=== PATIENT | male | born 1965 | race Caucasian/White ===

== ENCOUNTER 2017-02-18 09:55 | Emergency (ER) | payer BC ==
[2017-02-18] MEDS ORDERED: Sodium Chloride 0.9% 500 ML IV ONE (10:17)
--- NOTE | 2017-02-18 10:29 | EDM.PDOC ---
ED HPI GENERAL MEDICAL PROBLEM - General Chief Complaint: Gastrointestinal Problem Stated Complaint: SENT BY [facility]/GI PROBLEMS Time Seen by Provider: 02/18/17 10:23 Source of Information: Reports: Patient, RN Notes Reviewed - History of Present Illness INITIAL COMMENTS - FREE TEXT/NARRATIVE: 51-year-old male comes in with symptoms of nausea, elevated lipase when checked at clinic yesterday. He states she's been feeling somewhat nauseated for about a week. Order he has continued to eat fairly normally, has been drinking fluids without difficulty. ~Does have his gallbladder. He does not consume alcohol. His lipase is reported to have been in the 1100 range after blood draw at the clinic yesterday. He gone to the clinic yesterday because of the nausea and " for a general physical". When the light pace came back reported quite high in the 1000 range she was referred to come here to the ED for further evaluation He has no upper abdominal pain at this time. No chest pain or difficulty breathing. He has not been vomiting. No prior abdominal surgeries. - Related Data Allergies Allergy/AdvReac Type Severity Reaction Status Date / Time No Known Allergies Allergy Verified 02/18/17 10:19 Home Meds: Home Meds Ranitidine [Zantac] 150 mg PO DAILY 02/18/17 [History] Zolpidem [Ambien] 10 mg PO BEDTIME 02/18/17 [History] ED ROS GENERAL - Review of Systems Review Of Systems: See Below Constitutional: Denies: Fever, Chills, Diaphoresis HEENT: Reports: No Symptoms Respiratory: Denies: Shortness of Breath Cardiovascular: Denies: Chest Pain GI/Abdominal: Reports: Nausea. Denies: Abdominal Pain, Vomiting Musculoskeletal: Reports: No Symptoms Skin: Reports: No Symptoms Neurological: Reports: No Symptoms ED EXAM, GI/ABD - Physical Exam Exam: See Below General Appearance: Alert, No Apparent Distress Throat/Mouth: Normal Inspection, Normal Oropharynx Head: Atraumatic. No: Facial Swelling Neck: Supple, Full Range of Motion Respiratory/Chest: Lungs Clear, Normal Breath Sounds Cardiovascular: Regular Rate, Rhythm GI/Abdominal Exam: Soft, Non-Tender. No: Guarding Back Exam: No: CVA Tenderness (L), CVA Tenderness (R) Extremities: Normal Inspection, Normal Range of Motion Neurological: Alert, Oriented, No Motor/Sensory Deficits Skin Exam: Warm, Dry, Normal Color Course - Vital Signs Last Recorded V/S: Last Vital Signs Temp 97.4 F 02/18/17 10:17 Pulse 60 02/18/17 10:17 Resp 16 02/18/17 10:17 BP 122/82 02/18/17 10:17 Pulse Ox 95 02/18/17 10:17 - Orders/Labs/Meds Orders: Active Orders 24 hr Category Date Time Status Peripheral IV Care [RC] . DIRECTED Care 02/18/17 10:18 Active Peripheral IV Insertion Adult [OM.PC] Stat Oth 02/18/17 10:17 Ordered Labs: Laboratory Tests 02/18/17 02/18/17 02/18/17 Range/Units 11:20 11:20 12:17 WBC 10.38 H (4.23-9.07) K/mm3 RBC 5.63 (4.63-6.08) M/mm3 Hgb 16.2 (13.7-17.5) gm/L Hct 46.5 (40.1-51.0) % MCV 82.6 (79.0-92.2) fl MCH 28.8 (25.7-32.2) pg MCHC 34.8 (32.2-35.5) g/dl RDW Std Deviation 39.8 (35.1-43.9) fL Plt Count 255 (163-337) K/mm3 MPV 11.8 (9.4-12.3) fl Neutrophils % (Manual) 63 H (40-60) % Band Neutrophils % 1 (0-10) % Lymphocytes % (Manual) 26 (20-40) % Atypical Lymphs % 0 % Monocytes % (Manual) 7 (2-10) % Eosinophils % (Manual) 3 (0.8-7.0) % Basophils % (Manual) 0 L (0.2-1.2) Platelet Estimate Adequate RBC Morph Comment Normal Sodium 143 (136-145) mEq/L Potassium 3.7 (3.5-5.1) mEq/L Chloride 107 (98-107) mEq/L Carbon Dioxide 25 (21-32) mEq/L Anion Gap 14.7 (5-15) BUN 21 H (7-18) mg/dL Creatinine 1.1 (0.7-1.3) mg/dL Est Cr Clr Drug Dosing 82.95 mL/min Estimated GFR (MDRD) > 60 (>60) mL/min BUN/Creatinine Ratio 19.1 H (14-18) Glucose 123 H (74-106) mg/dL Calcium 8.8 (8.5-10.1) mg/dL Total Bilirubin 0.8 (0.2-1.0) mg/dL AST 18 (15-37) U/L ALT 38 (16-63) U/L Alkaline Phosphatase 72 (46-116) U/L C-Reactive Protein < 0.2 (<1.0) mg/dL Total Protein 6.9 (6.4-8.2) g/dl Albumin 3.5 (3.4-5.0) g/dl Globulin 3.4 gm/dL Albumin/Globulin Ratio 1.0 (1-2) Amylase 45 (25-115) U/L Lipase 251 (73-393) U/L Meds: Medications Discontinued Medications Generic Name Dose Route Start Last Admin Trade Name Freq PRN Reason Stop Dose Admin Diatrizoate Meglum/Diatrizoate Sod 90 ml 02/18/17 12:12 02/18/17 12:39 Gastrografin 37% PO 02/18/17 12:13 90 ml ONETIME ONE Administration Sodium Chloride 500 mls @ 999 mls/hr 02/18/17 10:17 02/18/17 11:28 Normal Saline IV 02/18/17 10:47 999 mls/hr .BOLUS ONE Administration Iopamidol 125 ml 02/18/17 12:12 02/18/17 12:39 Isovue-300 (61%) IVPUSH 02/18/17 12:13 125 ml ONETIME ONE Administration Sodium Chloride 10 ml 02/18/17 10:18 02/18/17 12:39 Saline Flush FLUSH 10 ml ASDIRECTED PRN Administration Keep Vein Open Sodium Chloride 10 ml 02/18/17 12:12 Saline Flush FLUSH ONETIME PRN IV FLUSH - Re-Assessments/Exams Free Text/Narrative Re-Assessment/Exam: 02/18/17 16:00. Lipase and amylase did come back normal. Because of the highly elevated reading yesterday from the clinic CT of abdomen and pelvis was ordered and done prior to labs coming back. The CT did not show any sign of high-grade otitis or other upper abdominal pathology. See Radiology report for details. Departure - Departure Time of Disposition: 14:04 Disposition: Home, Self-Care 01 Condition: Fair Clinical Impression: Nausea - Discharge Information Referrals: Lincoln iKm PA-C [Primary Care Provider] - Forms: ED Department Discharge Additional Instructions: There is an amylase was 45 today, lipase 251, both normal. CT of your abdomen did not show any sign of pancreatitis. Follow-up clinic as needed if symptoms worsening in any way, return to ED as needed. - My Orders Last 24 Hours: My Active Orders 02/18/17 10:17 Peripheral IV Insertion Adult [OM.PC] Stat 02/18/17 10:18 Peripheral IV Care [RC] . DIRECTED - Assessment/Plan Last 24 Hours: My Active Orders 02/18/17 10:17 Peripheral IV Insertion Adult [OM.PC] Stat 02/18/17 10:18 Peripheral IV Care [RC] . DIRECTED
[2017-02-18] MEDS: Sodium Chloride 0.9% 10 ML Syringe FLUSH PRN ×2 (11:29→12:39)
[2017-02-18] MEDS ORDERED: Iopamidol 612 MG/ML 150 ML Bottle IVPUSH ONE (12:12)
[2017-02-18] MEDS ORDERED: Sodium Chloride 0.9% 10 ML Syringe FLUSH PRN (12:12)
[2017-02-18] MEDS ORDERED: Diatrizoate Meglumine/Diatrizoate Sodium 37% 120 ML Bottle PO ONE (12:12)
--- NOTE | 2017-02-18 14:08 | CT ---
CT abdomen and pelvis Technique: Multiple axial sections were obtained from above the dome of the diaphragm inferiorly through the pubic symphysis. Intravenous and oral contrast was utilized. Delayed images were obtained through the bladder. Comparison: No prior abdominal or pelvic CT imaging. Findings: Small portion of the visualized lung bases are clear. Small hyperenhancing lesion is seen posteriorly within the right lobe of the liver. This finding measures 9 mm. Liver shows diffuse fatty infiltration. No additional abnormality is seen within the liver. Spleen appears within normal limits. Adrenal glands show no nodule. Calcified gallstone is seen within the gallbladder measuring 1.3 cm. Pancreas is within normal limits. Small soft tissue nodule within the splenic hilum is seen compatible with incidental accessory splenic tissue. Kidneys show symmetric contrast enhancement without hydronephrosis or mass. Aorta shows no aneurysmal dilatation. No retroperitoneal adenopathy or mesenteric abnormalities are seen. Appendix is seen which appears normal. No pelvic mass or adenopathy is seen. Mild wall thickening is seen within the sigmoid colon with no surrounding inflammatory change. Difficult to exclude a mild focal colitis. Other portions of the colon are felt to be within normal limits. No free fluid or inflammatory change is seen. Delayed images shows contrast within the distal ureters and within the bladder. Bone window settings were reviewed which appears within normal limits for the patient's age. Impression: 1. Bowel wall thickening within the sigmoid colon. Focal colitis is a possibility. No significant inflammatory change is seen around this area of bowel wall thickening. 2. Small hyperenhancing lesion within the posterior right lobe of the liver which is likely benign. Fatty infiltration is seen within the liver. 3. Large calcified gallstone within the gallbladder. 4. Nothing acute is identified. Diagnostic code #2
== END 2017-02-18 14:13 | disposition home or self-care (01) ==
LOC: JD.ED 09:55
DX: R11.0 Nausea (principal); Z79.899 Other long term (current) drug therapy
CPT/HCPCS: 36415; 74177; 80053; 82150; 83690; 85025; 86140; 96360; 99283; J7040; J7050; Q9963; Q9967; 99284

== ENCOUNTER 2017-11-01 07:09 | Day surgery (SDC) | payer BC ==
[~2017-11-01 07:09] MED LIST: Lactated Ringers 1,000 ML IV SCH; Lidocaine 1% 2 ML ONE; Lidocaine 1%/Sod Bicarbonate in NS 8.4% 1 ML Syringe IDERM PRN; Propofol 200 MG/20 ML SDV ONE; Sodium Chloride 0.9% 10 ML Syringe FLUSH PRN
--- NOTE | 2017-11-01 07:42 | PCM.PREANE ---
Preanesthetic Assessment - Anesthesia/Transfusion/Family Hx Anesthesia History: Prior Anesthesia Without Reaction Family History of Anesthesia Reaction: No Transfusion History: No Prior Transfusion(s) Intubation History: Unknown - Review of Systems General: No Symptoms Pulmonary: Shortness of Breath Cardiovascular: No Symptoms Gastrointestinal: No Symptoms Neurological: No Symptoms Other: Reports: None - Physical Assessment NPO Status Date: 11/01/17 NPO Status Time: 00:00 Pulse: 72 O2 Sat by Pulse Oximetry: 98 Respiratory Rate: 18 Blood Pressure: 122/80 Temperature: 97.7 C ASA Class: 2 Mental Status: Alert & Oriented x3 Airway Class: Mallampati = 1 Dentition: Reports: Normal Dentition Thyro-Mental Finger Breadths: 3 Mouth Opening Finger Breadths: 3 ROM/Head Extension: Limited/Partial (pt had neck surgery as an , ROM limited L/R more so L limitation) Lungs: Clear to Auscultation Cardiovascular: Regular Rate, Regular Rhythm - Lab Values: Laboratory Last Values POC Glucose 112 mg/dL (70-105) H 11/01/17 07:27 - Allergies Allergies/Adverse Reactions: Allergies Allergy/AdvReac Type Severity Reaction Status Date / Time No Known Allergies Allergy Verified 02/18/17 10:19 - Acknowledgements Anesthesia Type Planned: MAC Pt an Appropriate Candidate for the Planned Anesthesia: Yes Alternatives and Risks of Anesthesia Discussed w Pt/Guardian: Yes Pt/Guardian Understands and Agrees with Anesthesia Plan: Yes PreAnesthesia Questionnaire HEENT History: Reports: None Cardiovascular History: Reports: SOB on Exertion (pt states SOB with exertion, has been told by in [place] "tobacco got into lungs when sleeping and scarred lungs") Respiratory History: Reports: Sleep Apnea, SOB Gastrointestinal History: Reports: GERD, Pancreatitis, Other (See Below) Other Gastrointestinal History: Hernia Genitourinary History: Reports: None Musculoskeletal History: Reports: None Neurological History: Reports: None Psychiatric History: Reports: Addiction (chewing tobacco) Other Psychiatric History: drugs Endocrine/Metabolic History: Reports: Diabetes, Type II (BS 112), Obesity/BMI 30 + Hematologic History: Reports: None Oncologic (Cancer) History: Reports: None Dermatologic History: Reports: None - Infectious Disease History Infectious Disease History: Reports: None - Past Surgical History HEENT Surgical History: Reports: Other (See Below) Other HEENT Surgeries/Procedures: right eye surgery Cardiovascular Surgical History: Reports: None Respiratory Surgical History: Reports: None GI Surgical History: Reports: None Male Surgical History: Reports: None Endocrine Surgical History: Reports: None Neurological Surgical History: Reports: None, Other (See Below) (neck muscle surgery as an ) Musculoskeletal Surgical History: Reports: Other (See Below) ((L) knee) Other Musculoskeletal Surgeries/Procedures:: Muscle put into neck when infant Dermatological Surgical History: Reports: None - SUBSTANCE USE Tobacco Use Within Last Twelve Months: Smokeless Tobacco Recreational Drug Use History: No Recreational Drug Type: Reports: Other (see below) (chewing tobacco) - HOME MEDS Home Medications: Home Meds Ranitidine [Zantac] 150 mg PO DAILY 02/18/17 [History] Zolpidem [Ambien] 10 mg PO BEDTIME 02/18/17 [History] Lisinopril 5 mg PO DAILY 10/29/17 [History] SitaGLIPtin [Januvia] 100 mg PO DAILY 10/29/17 [History] metFORMIN HCl [Metformin HCl] 1,000 mg PO DAILY 10/29/17 [History] - CURRENT (IN HOUSE) MEDS Current Meds: Current Medications Lactated Ringer's (Ringers, Lactated) 1,000 mls @ 125 mls/hr IV ASDIRECTED RODRIGUEZ Stop: 11/01/17 23:00 Lidocaine/Sodium Bicarbonate (Buffered Lidocaine 1% In Ns 8.4%) 0.25 ml IDERM ONETIME PRN PRN Reason: Prior to IV Start Stop: 11/01/17 18:00 Sodium Chloride (Saline Flush) 10 ml FLUSH ASDIRECTED PRN PRN Reason: Keep Vein Open Stop: 11/01/17 18:00 Discontinued Medications Lidocaine HCl (Xylocaine-Mpf 1%) Confirm Administered Dose 2 mls @ as directed .ROUTE .STK-MED ONE Stop: 11/01/17 06:45 Lidocaine HCl (Xylocaine-Mpf 1%) Confirm Administered Dose 2 mls @ as directed .ROUTE .STK-MED ONE Stop: 11/01/17 06:45 Propofol (Diprivan 20 Ml) Confirm Administered Dose 200 mg .ROUTE .STK-MED ONE Stop: 11/01/17 06:41 Propofol (Diprivan 20 Ml) Confirm Administered Dose 200 mg .ROUTE .STK-MED ONE Stop: 11/01/17 06:44
--- NOTE | 2017-11-01 07:44 | PCM.HP ---
H&P History of Present Illness - General Date of Service: 11/01/17 Source of Information: Patient, Family - History of Present Illness Initial Comments - Free Text/Narative: The patient is a 52-year-old malereferred by Lincoln Kim PA-C for screening colonoscopy. The patient presents today for endoscopy . He was evaluated in the clinic on 04/05. Denies changes to medical history since that exam. He did finish colonoscopy as instructed. Stools were clear. He started Metformin around 2 monthsago. He had some constipation /some diarrhea with Metformin. Stools have since normalized. NO: hematochezia/ melena/blood on tissue paper/hemorrhoids. . He has lost around 8 pounds with start of Metformin. No change in stool caliber. No abdominal pain. Denies history of ulcerative colitis or Crohn's disease. Denies any family history of inflammatory bowel disease. Grandfather has colon cancer. Last colonoscopy was never. He denies reflux, unless he bends over. He has Heartburn for 20 years. He has been taking Zantac one daily for around 20 years. He feels the heartburn is related to chewing tobacco. He chews one can of tobacco daily. NO: vomiting , or dysphagia. Last EGD was never. Also reports umbilical hernia. He previously reported he only has pain when he pushes on the area. No pain with coughing, sneezing, bending, lifting. No obstipation. He has seen Dr. Bush for this and was advised to monitor for now. - Related Data Allergies/Adverse Reactions: Allergies Allergy/AdvReac Type Severity Reaction Status Date / Time No Known Allergies Allergy Verified 02/18/17 10:19 Home Medications: Home Meds Ranitidine [Zantac] 150 mg PO DAILY 02/18/17 [History] Zolpidem [Ambien] 10 mg PO BEDTIME 02/18/17 [History] Lisinopril 5 mg PO DAILY 10/29/17 [History] SitaGLIPtin [Januvia] 100 mg PO DAILY 10/29/17 [History] metFORMIN HCl [Metformin HCl] 1,000 mg PO DAILY 10/29/17 [History] Past Medical History Respiratory History: Reports: Sleep Apnea Gastrointestinal History: Reports: GERD, Pancreatitis, Other (See Below) Other Gastrointestinal History: Hernia Psychiatric History: Reports: Addiction Other Psychiatric History: drugs Endocrine/Metabolic History: Reports: Diabetes, Type II, Obesity/BMI 30+ - Past Surgical History HEENT Surgical History: Reports: Other (See Below) Other HEENT Surgeries/Procedures: right eye surgery Musculoskeletal Surgical History: Reports: Other (See Below) Other Musculoskeletal Surgeries/Procedures:: Muscle put into neck when infant Social & Family History - Family History Family Medical History: Noncontributory - Caffeine Use Caffeine Use: Reports: Coffee, Soda - Recreational Drug Use Recreational Drug Use: No Drug Use in Last 12 Months: No H&P Review of Systems - Review of Systems: Review Of Systems: See Below Free Text/Narrative: Denies any exertional chest pain. He has exertional shortness of breath with stair climbing. He has exertional SOB with minimal exertion. He reports frequent sighing. He reports the shortness of breath has been a long standing problem. He had a stress test around 7 years ago in [place], [place] which was negative. He was told symptoms were due to heat and humidity. CXR and PFTs were ordered after last visit. He forgot these were ordered and has not completed these. No history of any easy bleeding or bruising. No personal or familial history of clotting or bleeding disorders. No history of anesthetic complications. No history of familial anesthetic complications. Denies presence of chest pain. Reports history of chest pain, 2009. Work up was reportedly negative in [place]. He saw a gravel roofer in 2011 for CPAP and SOB. NO further testing recommended. NO: palpitations, lower extremity edema, dyspnea at rest, orthopnea, claudication, wheezing. Has obstructive sleep apnea, uses CPAP. NO: chronic cough, upper respiratory symptoms in the last two weeks. No history of blood thinner use. No history of anemia. NO: joint replacement and heart valve replacement. No history of seizure or stroke. Last Hgb A1C 8.4. He will note blurred vision with high blood glucose levels. No fever, chills, or nightsweats. EKG: hx of 7 years Echo: never He previously reported hx of something was "seen on liver" at one point. I did review [facility] after initial patient visit. He did have a CT scan [address] [facility] in the ED for hx of elevated lipase. CTshowed a suspectedbenign liver lesion , large calcified gallstone-1.3cm, possible focal colitis in sigmoid colon. Lipase, amylase, bilirubin, and liver enzymes were normal. He has been asymptomatic with the gallstone, but is diabetic. All other systems reviewed and were negative except as per history of present illness. Exam - Exam Exam: See Below - Exam General: Alert, Oriented, Cooperative HEENT: Conjunctiva Clear Lungs: Clear to Auscultation, Normal Respiratory Effort. No: Crackles, Rales, Rhonchi, Wheezing Cardiovascular: Regular Rate, Regular Rhythm, Normal S1, Normal S2 GI/Abdominal Exam: Soft, Non-Tender, No Distention Back Exam: Normal Inspection Extremities: Normal Inspection, Normal Range of Motion, Non-Tender, No Pedal Edema, Normal Capillary Refill Peripheral Pulses: 2+: Radial (L) Skin: Warm, Dry, Intact Neurological: Normal Speech. No: Focal Deficit Neuro Extensive - Mental Status: Alert, Oriented x3, Normal Mood/Affect, Normal Cognition, Memory Intact Psychiatric: Alert, Normal Affect, Normal Mood - Patient Data Lab Results Last 24 hrs: Laboratory Results - last 24 hr 11/01/17 Range/Units 07:27 POC Glucose 112 H (70-105) mg/dL - Problem List (1) Encounter for screening colonoscopy SNOMED Code(s): 951639466, 588871229 ICD Code: Z12.11 - ENCOUNTER FOR SCREENING FOR MALIGNANT NEOPLASM OF COLON Status: Acute Current Visit: Yes (2) Heartburn SNOMED Code(s): 37948371 ICD Code: R12 - HEARTBURN Status: Acute Current Visit: Yes (3) Acid reflux SNOMED Code(s): 386222878 ICD Code: K21.9 - GASTRO-ESOPHAGEAL REFLUX DISEASE WITHOUT ESOPHAGITIS Status: Acute Current Visit: Yes Qualifiers: Esophagitis presence: esophagitis presence not specified Qualified Code(s) : K21.9 - Gastro-esophageal reflux disease without esophagitis (4) Chewing tobacco nicotine dependence SNOMED Code(s): 06570061, 24535604 ICD Code: F17.220 - NICOTINE DEPENDENCE, CHEWING TOBACCO, UNCOMPLICATED Status: Acute Current Visit: Yes Qualifiers: Substance use status: unspecified nicotine-induced disorder Qualified Code( s): F17.229 - Nicotine dependence, chewing tobacco, with unspecified nicotine- induced disorders Problem List Initiated/Reviewed/Updated: Yes Orders Last 24hrs: Active Orders 24 hr Category Date Time Status Blood Glucose Check, Bedside [RC] ONETIME Care 11/01/17 00:01 Active Peripheral IV Care [RC] . DIRECTED Care 11/01/17 00:01 Active Verify Patient Consent Obtain [RC] ASDIRECTED Care 11/01/17 00:01 Active Lactated Ringers [Ringers, Lactated] 1,000 ml Med 11/01/17 00:01 Active IV ASDIRECTED Lidocaine 1%/Sod Bicarbonate [Buffered Lidocaine 1% in Med 11/01/17 00:01 Active NS 8.4%] 0.25 ml IDERM ONETIME PRN Sodium Chloride 0.9% [Saline Flush] Med 11/01/17 00:01 Active 10 ml FLUSH ASDIRECTED PRN Medication Administration Instruction [OM.PC] Routine Oth 11/01/17 00:01 Ordered Peripheral IV Insertion Adult [OM.PC] Routine Oth 11/01/17 00:01 Ordered Medication Orders Lactated Ringer's (Ringers, Lactated) 1,000 mls @ 125 mls/hr IV ASDIRECTED RODRIGUEZ Stop: 11/01/17 23:00 Lidocaine/Sodium Bicarbonate (Buffered Lidocaine 1% In Ns 8.4%) 0.25 ml IDERM ONETIME PRN PRN Reason: Prior to IV Start Stop: 11/01/17 18:00 Sodium Chloride (Saline Flush) 10 ml FLUSH ASDIRECTED PRN PRN Reason: Keep Vein Open Stop: 11/01/17 18:00 Assessment/Plan Comment:: b Assessment/Plan: 52yr male with no prior colonoscopy, reflux, heartburn, inability to wean acid suppressive therapy, need for diagnostic EGD and screening colonoscopy Patient can perform 4 METS of physical activity without chest pain. He has exertional shortness of breath. Minimally symptomatic umbilical hernia Chronic exertional shortness of breath Gallstone PLAN: We discussed performing a diagnostic EGD and screeningcolonoscopy. We discussed the procedure and post operative expectations. This procedure will be done at [facility] due to shortness of breath and poorly controlled DM He has a minimally symptomatic umbilical hernia, which is reducible. No s/s of incarceration or obstruction. He was previously instructed to monitor for s/s of incarceration/strangulation and to follow up should such occur. Reports chronic exertional shortness of breath. Again advised CXR and PFTs to further evaluate. He an his do plan to schedule this. Discussed findings of gallstone noted on CT 2017. Due to hx of gallstone and DM. Will request patient follow up with Dr. Dobson after endoscopy to discuss surgery v. Monitoring. I personally reviewed the patient's previous medical records and laboratory studies. Patient verbalized understanding and agreed with care plan. SAL Padgett [facility] Surgery Department [facility]
[2017-11-01] MEDS ORDERED: Simethicone Drops 40 MG/0.6 ML 30 ML Bottle ONE (08:33)
--- NOTE | 2017-11-01 08:59 | PCM48HPAN ---
Post Anesthesia Note - EVALUATION WITHIN 48HRS OF ANESTHETIC Vital Signs in Normal Range: Yes Patient Participated in Evaluation: Yes Respiratory Function Stable: Yes Airway Patent: Yes Cardiovascular Function Stable: Yes Hydration Status Stable: Yes Pain Control Satisfactory: Yes Nausea and Vomiting Control Satisfactory: Yes Mental Status Recovered: Yes Pulse Rate: 77 SaO2: 97 Resp Rate: 16 Temperature: 97.9 C Blood Pressure: 121/88
--- NOTE | 2017-11-01 11:47 | OR ---
DATE OF OPERATION: 11/01/2017 SURGEON: Gagan Dobson MD PREOPERATIVE DIAGNOSIS: Gastroesophageal reflux disease. POSTOPERATIVE DIAGNOSIS: Gastroesophageal reflux disease. OPERATION PERFORMED: Esophagogastroduodenoscopy with biopsy done under IV sedation. FINDINGS: Fixed hiatal hernia at the GE junction located at 38 cm of the Schatzki's ring. The GE junction appeared to be straight. No acute pathology. Biopsies were taken of the GE junction and the antrum. Second portion of the duodenum, duodenal bulb, pyloric channel, antrum, body, cardia, and fundus of the stomach unremarkable other than a hiatal hernia. Rest balance of the esophagus was normal. DESCRIPTION OF PROCEDURE: The patient was taken to the endoscopy room, placed in a supine position, connected to monitoring equipment, given IV sedation. Bite block was inserted. The patient was placed in left lateral position. Video Olympus gastroscope placed in a posterior oropharynx. Under direct vision, threaded past the cricopharyngeus down the esophagus and stomach. Stomach was insufflated, and the scope passed through the pylorus to the second portion of the duodenum and it was then slowly withdrawn showing normal second portion of the duodenum, duodenal bulb. Antrum, body, and cardia of the stomach were viewed and J maneuver was performed showing a hiatal hernia. Biopsy of the antrum was taken looking for H. pylori. Scope withdrawn and the GE junction showed a hiatal hernia, Schatzki's ring. Z-line appeared to be normal. Biopsies were taken of the GE junction. Rest of the esophagus viewed, scope withdrawn, unremarkable. The patient tolerated the procedure and IV sedation continued for colonoscopy. ANESTHESIA: ESTIMATED BLOOD LOSS: MMODAL /[id number]
--- NOTE | 2017-11-01 11:47 | OR ---
DATE OF OPERATION: 11/01/2017 SURGEON: Gagan Dobson MD PREOPERATIVE DIAGNOSIS: Screening colonoscopy. POSTOPERATIVE DIAGNOSIS: Screening colonoscopy. OPERATION PERFORMED: Colonoscopy to cecum with polypectomy x3, diminutive polyp in the descending colon, sigmoid colon, and rectum. ANESTHESIA: Done under IV sedation. FINDINGS: Colonic polyps diminutive x3. There were no angiodysplasias, large tumor masses, ulcerations, diverticulum, or hemorrhoids. DESCRIPTION OF PROCEDURE: The patient having been taken to the endoscopy room and connected to monitoring equipment, given IV sedation for upper GI endoscopy. IV sedation was continued for colonoscopy. The patient was placed in left lateral position. Perianal area was inspected, showed external hemorrhoids. Rectal exam showed good sphincter tone. A video Olympus colonoscope was introduced into the rectum and threaded up without problem to the cecum, where the appendicular orifice and ileocecal valve were noted. Prep was excellent throughout the colon. [place] Cleansing Score grade A. The scope was slowly withdrawn showing the cecum, ascending colon, transverse colon, descending colon, sigmoid colon, and rectum. Polyps in the descending colon and the sigmoid colon and rectum were noted and all removed by cold biopsy forceps and each sent to pathology in a separate labeled container. The patient tolerated the procedure, sent to recovery room in a stable condition, will be followed up in the clinic. ESTIMATED BLOOD LOSS: MMODAL /[id number]
== END 2017-11-01 09:21 | disposition home or self-care (01) ==
LOC: JD.SDS 07:09
PROVIDERS: ATTEND Surgery
DX: Z12.11 Encounter for screening for malignant neoplasm of colon (principal); K21.9 Gastro-esophageal reflux disease without esophagitis; D12.4 Benign neoplasm of descending colon; D12.5 Benign neoplasm of sigmoid colon; D12.8 Benign neoplasm of rectum; K22.2 Esophageal obstruction; K29.50 Unspecified chronic gastritis without bleeding; K20.0 Eosinophilic esophagitis; K44.9 Diaphragmatic hernia without obstruction or gangrene; K64.4 Residual hemorrhoidal skin tags; I10 Essential (primary) hypertension; E11.65 Type 2 diabetes mellitus with hyperglycemia; E66.9 Obesity, unspecified; F17.220 Nicotine dependence, chewing tobacco, uncomplicated; K42.9 Umbilical hernia without obstruction or gangrene; G47.33 Obstructive sleep apnea (adult) (pediatric); Z79.84 Long term (current) use of oral hypoglycemic drugs; Z79.899 Other long term (current) drug therapy; Z80.0 Family history of malignant neoplasm of digestive organs; Z99.89 Dependence on other enabling machines and devices
CPT/HCPCS: 43239; 45380; 82962; A9270; J2704; J7120; J2001